=== PATIENT | female | born 1970 | race African-American/Black ===

== ENCOUNTER 2021-01-29 15:20 | Emergency (ER) | payer OTHER ==
[~2021-01-29] VITALS: Ht 177.8 cm; Wt 72.6 kg
[2021-01-29 15:25] VITALS: BP 106/74
[2021-01-29] MEDS ORDERED: IBUPROFEN 800 MG TAB PO ONE (17:15)
[2021-01-29] MEDS ORDERED: METHOCARBAMOL 500 MG TAB PO ONE (17:15)
== END 2021-01-29 17:26 | disposition home or self-care (01) ==
LOC: ER 15:20
DX: S09.8XXA Other specified injuries of head, initial encounter (principal); R42 Dizziness and giddiness; Z90.710 Acquired absence of both cervix and uterus; V43.52XA Car driver injured in collision with other type car in traffic accident, initial encounter; Y93.89 Activity, other specified; Y92.89 Other specified places as the place of occurrence of the external cause; Y99.8 Other external cause status
CPT/HCPCS: 70450; 72125